=== PATIENT | female | born 1940 | race Caucasian/White ===

== ENCOUNTER 2016-12-08 21:42 | Inpatient (IN) | payer MEDICARE, BC ==
--- NOTE | ~2016-12-08 | HP ---
Unit #: [id number] #: [id number] Patient: CHAS KING [id number] [facility]. [place], [place] [address] [id number] I MR#: [id number] NAME: CHAS KING. ROOM: 466 Age: 76 Sex: F Admission Date: 12/09/2016 : 1940 Attending Physician: [place] Galeas M.D. Primary Care Physician: Riley Torres M.D. HISTORY AND PHYSICAL CHIEF COMPLAINT Pyelonephritis with nausea, back and right lower quadrant pain, failing outpatient antibiotics. HISTORY This pleasant 76-year-old female, who previously worked in Medical Records at [employer] with chronic atrial fibrillation, AODM, hypertension, is admitted for pyelonephritis. Apparently, the patient became ill two weeks ago with fever, back pain, right lower quadrant pain, chills, nausea, and dysuria. She was diagnosed with a urinary tract infection and completed antibiotics about five days ago. Over the past five to six days, has been experiencing increasing right lower quadrant discomfort, malaise, weakness, nausea, and black stool. She presents to this emergency department with stable vital signs, is in chronic atrial fibrillation. Is heme negative from below. Labs are notable for significant pyuria. In the ER, she was given morphine, Zofran, bolused with IV fluids, given Protonix and Rocephin. INR is 3.4. PAST MEDICAL HISTORY 1. CAD with previous cardiac catheterization 2006 revealing mild plaquing of the RCA and moderate dilation of the aortic root. Echo 09/2015 revealed an ejection fraction 50% to 55% with moderate left atrial enlargement, moderate severe MR, mild TR, moderate AF, moderate pulmonary artery hypertension. 2. Chronic atrial fibrillation for which the patient is anticoagulated. 3. Hypertension. 4. AODM for about 20 years. 5. Gout. 6. Hyperlipidemia. 7. Hypothyroidism. 8. History of congestive heart failure. 9. History of thrombocytopenia. 10. Chronic lower extremity edema. 11. Previous TIA. 12. BTL. 13. Cholecystectomy. 14. Cataract extraction. ALLERGIES Allergies to xanthines, penicillin, caffeine, lisinopril, codeine, erythromycin base. MEDICATIONS Unit #: [id number] #: [id number] Patient: CHAS KING Home medications include: 1. Lantus 50 units subcu q. h.s. 2. Omeprazole. 3. Synthroid 0.15 mg daily. 4. Lasix 40 mg b.i.d. 5. I see Cipro and Flagyl which patient may have completed recently. 6. Coumadin 5 mg daily. 7. Lipitor 40 mg daily. 8. Potassium 20 mEq daily. 9. Spironolactone 12.5 mg daily. 10. Cardizem XL 240 mg daily. 11. Lopressor 25 mg b.i.d. 12. Digoxin 0.125 mg daily. 13. NovoLog 20 units before breakfast and lunch. However, I noticed that when patient was discharged 12/[address] Dumont, her Lantus was 30 units in the morning, 14 units at bedtime with NovoLog 16 units subcu daily with meals. 14. The patient also, I believe, takes Aricept 5 mg daily. 15. Glucosamine. FAMILY HISTORY Negative for CAD. SOCIAL HISTORY The patient lives with her who is a stock broker supervisor and her son. She is a lifelong nonsmoker, does not drink alcohol. REVIEW OF SYSTEMS Notable for lower abdominal discomfort, black stool, back pain, recent fevers, malaise, dysuria, atrial fibrillation, minimal CAD, hypertension, diabetes, hyperlipidemia, hypothyroidism, valvular heart disease, possible TIA, above mentioned surgeries. All other systems were reviewed and are otherwise negative. PHYSICAL EXAMINATION GENERAL APPEARANCE: Pleasant, moderately obese 76-year-old female, currently in no acute distress. VITAL SIGNS: Temperature 97.7, pulse 93, respirations 14, blood pressure 146/90, O2 saturation is 98% on room air. HEENT: Eyes PERRLA. Extraocular muscles are intact. Pharynx is benign. NECK: Supple without adenopathy or thyromegaly. CHEST: Clear. CARDIAC: Normal S1 and S2. Irregular. The patient has a systolic murmur best heard at the right upper sternal border. ABDOMEN: Bowel sounds are present. Mild right lower quadrant tenderness without rebound or guarding. No hepatosplenomegaly or masses. EXTREMITIES: Notable for pedal edema bilaterally. Pedal pulses are diminished. No ulcers on the feet. NEUROLOGIC EXAM: The patient is awake, alert, oriented. Cranial nerves are intact. Equal strength throughout. RECTAL: Rectal examination per the ER physician - Hemoccult negative. DIAGNOSTIC STUDIES LABORATORY: Hematocrit is 41.8, normal white count and platelet count. SMA-12 - glucose 123. Normal lipase. Urinalysis - positive leukocyte esterase with 50-100 white cells. No Unit #: [id number] #: [id number] Patient: CHAS KING squamous cells. IMAGING: CT scan of the abdomen and pelvis - small hiatal hernia, diverticular disease, hemorrhagic cyst lower pole of the right kidney. CARDIOVASCULAR: On telemetry, the patient is in A-fib, rate controlled, around 82. ASSESSMENT 1. Pyelonephritis/nausea with back and right lower quadrant pain, failing outpatient antibiotics: I believe patient was recently taking Cipro and Flagyl per current records. She is allergic to penicillin. 2. Black stool: The patient is heme negative from below, has a normal hemoglobin. 3. Insulin dependent diabetes mellitus: The patient has been out of her Lantus, I believe for the past three days. 4. Chronic atrial fibrillation, on Coumadin with supratherapeutic INR. 5. Memory issues. 6. Hypothyroidism. 7. Minimal coronary artery disease with valvular heart disease and normal ejection fraction. 8. Chronic pedal edema. PLANS 1. Rocephin, gentle IV fluids tonight. 2. Hold Coumadin until INR decreases. 3. Supportive treatment. 4. Decrease insulin dose. 5. Check dig level. 6. Florastor. Dictated by Brooklyn Galeas M.D. AML/df TD: 12/09/2016 05:00 JOB #: [id number] HISTORY AND PHYSICAL Page 1 of 1 X Brooklyn Galeas MD HISTORY AND PHYSICAL
--- NOTE | ~2016-12-08 | EKG ---
PATIENT: CHAS KING UNIT #: [id number] Ventricular Rate: 80 BPM Atrial Rate: 78 BPM QRS Duration: 96 ms Q-T Interval: 420 ms QTC Calculation(Bezet): 484 ms Calculated R [place]: -14 degrees Calculated T [place]: 59 degrees Diagnosis Line: Atrial fibrillation with PVC's Diagnosis Line: Incomplete right bundle branch block Diagnosis Line: Anteroseptal infarct (cited on or before Diagnosis Line: 16-AUG-2011) Diagnosis Line: Nonspecific T wave abnormality Diagnosis Line: Abnormal ECG Diagnosis Line: When compared with ECG of 26-DEC-2015 08:42, Diagnosis Line: Incomplete right bundle branch block is now Diagnosis Line: Present Diagnosis Line: Confirmed by CHEY HANSEN MD ([id number]) on Diagnosis Line: 12/14/2016 2:07:10 PM INTERPRETING MD: CHON
--- NOTE | ~2016-12-08 | DS ---
Unit #: [id number] #: [id number] Patient: CHAS KING [id number] [place], [place] [address] [id number] I MR#: [id number] NAME: CHAS KING. ROOM: 558 Age: 76 Sex: F Admission Date: 12/08/2016 : 1940 Discharge Date: 12/12/2016 Attending Physician: Belinda Loera M.D. Primary Care Physician: Riley Torres M.D. DISCHARGE SUMMARY PRIMARY CARE PROVIDER Riley Torres M.D. PRINCIPAL DIAGNOSES 1. Two-second sinus pause. 2. Nonsustained ventricular tachycardia. 3. Acute gout flare of right great toe. 4. Diabetes mellitus type 2, insulin requiring with hyperglycemia. 5. Chronic kidney disease, stage 3 with baseline creatinine of approximately 1.3. 6. Chronic atrial fibrillation, rate controlled and maintained on mildly subtherapeutic Coumadin. 7. Bradycardia. 8. Dementia, mild. 9. Hypertension. 10. Hyperlipidemia. 11. Hypothyroidism. 12. Chronic venous stasis. 13. Obesity, morbid. 14. Hypomagnesemia. 15. Moderate to severe mitral regurgitation. 16. Moderate aortic stenosis. CONSULTANTS Dr. Crane, Cardiology. PROCEDURES 1. Chest x-ray on 12/10/2016, with cardiac enlargement and low lung volumes. 2. CT scan of abdomen and pelvis on 12/08/2016, with no acute findings. A small hemorrhagic or proteinaceous cyst in lower pole of right kidney is noted. CLINICAL HISTORY AND HOSPITAL COURSE Ms. King is a 76-year-old female, who presents to the emergency department with right flank pain and back pain. It was associated with malaise, weakness, nausea, and one episode of black stool, which was Hemoccult negative. In the emergency department, there were concerns that the patient had perhaps some mild pyelonephritis given she recently had a UTI and was treated with antibiotics as an outpatient. CT scan of the abdomen and pelvis however did not reveal any abnormal findings. The patient was subsequently admitted. Unit #: [id number] #: [id number] Patient: CHAS KING The patient is started on empiric antibiotics for questionable pyelonephritis; however, she had no complaints of nausea, vomiting, or right-sided back pain for me throughout hospitalization. She remained afebrile. Had a normal white blood cell count and urine culture was negative. Antibiotics were discontinued. The patient was maintained on telemetry due to her chronic atrial fibrillation. She was found to have a 2-second sinus pause on the first day of hospitalization and Cardiology was consulted. Medications were adjusted and she has had no further sinus pause; however, she did develop some significant bradycardia and for a short period required a dopamine drip. She has been placed back on beta-blockers due to her atrial fibrillation, but again no further sinus pauses. The patient however did develop nonsustained ventricular tachycardia and medications were again adjusted. She has had no further nonsustained ventricular tachycardia. She did have some mild hypomagnesemia. Plan at this point is to treat medically, but if the patient has any recurrent symptoms, may need cardiac cath. Today, the patient is complaining of pain in her right great toe and she appears to have an acute gout flare. I will treat with prednisone therapy. As an outpatient, uric acid level can be evaluated and allopurinol initiated if necessary. I anticipate discharge home later today. The have also informed the patient and her they have been unable to afford Lantus and she has not been taking her insulin. Here, I have tried her on NPH and sugars have been relatively well controlled, running in the 150s fasting, but not at goal. This is an improvement and it is affordable. I am going to change her to NPH and this can be followed up by Dr. Dumont, whom she sees as an outpatient and/or the patient's primary care provider. DISCHARGE CONDITION Stable. DISCHARGE STATUS Discharged to home. DISCHARGE MEDICATIONS Prednisone 20 mg tablets two tablets daily for two days and one tablet daily for two days and discontinue; Coumadin 5 mg p.o. daily on Thursday, , Thursday, Thursday, and 7.5 mg on Thursday, Thursday, Thursday; glucosamine 500 mg daily; metoprolol tartrate 25 mg b.i.d.; Aricept 5 mg daily; Lasix 40 mg b.i.d.; Lipitor 40 mg daily; Humulin N U-100 10 units subcutaneously every 12 hours; CoQ10 10 mg daily; vitamin B complex daily; levothyroxine 150 mcg p.o. daily; potassium chloride 20 mEq p.o. daily; Caltrate 600+ D one daily; Aldactone 12.5 mg daily. DISCHARGE INSTRUCTIONS The patient is instructed to follow heart healthy diet and diabetic diet. She will continue Accu-Cheks a.c. and h.s. at home. She can increase her activity as tolerated. FOLLOWUP The patient will follow up with Dr. Crane per his instructions. The patient will follow up with her primary care provider, Dr. Torres in Unit #: [id number] #: [id number] Patient: CHAS KING approximately 2 weeks, can recheck potassium at that time in addition to checking uric acid level. She will have followup INR at that time as well. Time spent on discharge 27 minutes. Dictated by... Belinda Loera M.D. RADHA/shanell TD: 12/13/2016 01:09 JOB #: [id number] DISCHARGE SUMMARY Page 1 of 1 X Belinda Loera MD X DISCHARGE SUMMARY
--- NOTE | ~2016-12-08 | BMI ---
[facility] Nutrition Therapy DATE: 12/09/16 Patient: CHAS KING Physician: MIGEL Address: [facility] [address] Room/Bed: [address] [place] [address], Zip: [place] [address] Admit Date: 12/09/16 Date of : 38 Height: 5 5 Weight: 254 115.6 HIGH BMI NOTE: DX: 76 y/o female admitted with pyelonephritis ANTHROPOMETRICS: Ht: 65", Wt: 115.6 kg, BMI: 42 (Stage III obese) DIET: Consistent carb INTERVENTION: + Healthy heart restriction, meds/fluids per MD RECOMMENDATIONS: Consider adding healthy heart restriction to current diet in order to promote a gradual weight loss towards a healthy BMI range. Respectfully, Erica Frye RD, LD [employer] and Nutrition[employer] Services [facility] cc: client file
--- NOTE | ~2016-12-08 | CO ---
Unit #: [id number] #: [id number] Patient: CHAS KING [id number] [place], [place] [address] [id number] I MR#: [id number] NAME: CHAS KING. ROOM: 558 Age: 76 Sex: F Admission Date: 12/08/2016 : 1940 Attending Physician: Belinda Loera M.D. Primary Care Physician: Riley Torres M.D. Consultation Date: 12/10/2016 CONSULTATION REPORT REASON FOR CONSULTATION Atrial fibrillation with slow ventricular rate and nonsustained ventricular tachycardia. HISTORY OF PRESENT ILLNESS This is a 76-year-old female who has a history of chronic atrial fibrillation, is on anticoagulation with Coumadin, hypertension, diabetic. She also has known valvular heart disease and pulmonary artery hypertension. She was admitted with complaints of nausea, back and right lower quadrant pain, failing outpatient antibiotics for treatment for pyelonephritis. The patient has been dealing with her symptoms for about two weeks. She has had fever, flank pain, right lower quadrant pain, chills, nausea and dysuria. She had been diagnosed with a urinary tract infection and completed antibiotics about five days ago. For the past five to six days, the patient has increased right lower quadrant discomfort, malaise, weakness, nausea and black stools. She was brought into the emergency room by her family. Her labs were noted for significant pyuria. Her blood pressure and heart rate were stable. Her rhythm was chronic atrial fibrillation which her rate was within normal range. She was heme negative for stool. Her hemoglobin was 12.8, hematocrit 36.0 and her WBCs are 8. The patient was started on IV antibiotics after urine culture sent. Also, she received some Zofran and IV morphine and Protonix. Cardiology was consulted today after patient was seen on the monitor to have a 2.1 second pause. The patient was asymptomatic with this. As mentioned, she denies any chest pain, pain in her neck, bilateral jaws, shoulders, arms or elbow. The patient is well known to Dr. Crane. He is his office patient. Cardiology has been asked to assist with evaluation and management. PAST MEDICAL HISTORY 1. Permanent atrial fibrillation. 2. 2006 had a cardiac cath which revealed LVEF of 50% with normal left main, left circumflex and LAD with mild plaquing to the RCA and moderate dilatation of the aortic root. 3. 09/2015 2D echo. LVEF of 50% to 55% with moderate left atrial enlargement, moderate to severe mitral regurgitation, mild tricuspid regurgitation, moderate aortic stenosis, moderate pulmonary artery hypertension with elevated RVSP 53 mmHg. 4. Hypertension. 5. Diabetes mellitus type 2. 6. Hyperlipidemia. 7. Hypothyroidism. 8. History of diastolic congestive heart failure. 9. Chronic kidney disease. Unit #: [id number] #: [id number] Patient: CHAS KING 10. History of thrombocytopenia, she sees hematology. 11. History of TIA. 12. Obesity. 13. Nonsmoker. 14. The patient has sleep apnea and uses a CPAP but sometimes is noncompliant as she has a history of asthma. PAST SURGICAL HISTORY 1. Tubal ligation. 2. Cholecystectomy. 3. Cataract extraction. HOME MEDICATIONS 1. Lantus 50 units subcu q. h.s. 2. Omeprazole 20 mg, one tablet p.o. daily. 3. Levothyroxine 150 mcg p.o. daily. 4. Lasix 40 mg p.o. twice daily. 5. Coumadin 5 mg p.o. on Thursday, Thursday and Thursday and takes 7.5 mg on alternating days. 6. Lipitor 40 mg p.o. daily. 7. K-Dur 20 mEq p.o. daily. 8. Aldactone 12.5 mg p.o. daily. 9. Diltiazem 240 mg, one tablet p.o. daily. 10. Metoprolol 25 mg p.o. twice daily. 11. Digoxin 0.125 mg p.o. daily. 12. Calcitrate 600 plus vitamin D, one tablet p.o. daily. 13. Co Q-10 10 mg p.o., one tablet daily. 14. B complex, one tablet p.o. daily. 15. Aricept 5 mg p.o. daily. 16. Glucosamine 500 mg p.o. daily. ALLERGIES Xanthines, penicillins, caffeine, lisinopril, codeine, erythromycin base. SOCIAL HISTORY The patient lives with her and her son. She has been a lifelong nonsmoker. No alcohol or illicit drug abuse. FAMILY HISTORY Negative for coronary artery disease. REVIEW OF SYSTEMS See details in HPI. PHYSICAL EXAMINATION GENERAL: On exam, Ms. King is a 76-year-old female in no acute respiratory distress. She is awake, alert and oriented. VITAL SIGNS: Blood pressure was 109/75, heart rate 92, respirations 18, temperature 98.7, O2 sats 95% on room air. NECK: Trachea midline. No thyromegaly or lymphadenopathy. Normal carotid upstrokes. No jugular venous distention. HEART: S1, S2. Irregular rate and rhythm. Systolic murmur over the aortic region, left sternal border. LUNGS: Diminished but clear. ABDOMEN: Obese, soft, nontender. EXTREMITIES: Pedal pulses are palpable. Trace of 1+ edema. NEUROLOGICAL: No focal weakness. Unit #: [id number] #: [id number] Patient: CHAS KING DIAGNOSTIC STUDIES LABORATORY: Glucose was 171, BUN 16, creatinine 1.4, eGFR 35.9, sodium 136, potassium 3.9, chloride 98, CO2 27, calcium 9.2, magnesium 1.6. Yesterday protime was 28.8 with an INR of 2.6. WBC 8.6, hemoglobin 12.1, hematocrit 36.6 and platelets of 164. Cardiac enzymes - CK total is 97, MB is 2.7, percentage of MB is 2.8, troponin 0.04, troponin 0.03, and 0.04. IMAGING: Chest x-ray shows moderate cardiac enlargement. No evidence of active disease. Low lung volumes. CT of abdomen and pelvis shows nothing acute. Small hiatal hernia. Diverticulosis with no diverticulitis. CARDIOVASCULAR: On admission, EKG showed atrial fibrillation with occasional premature ventricular complex. Inferior infarct with also atrioseptal Qs. Atrial fibrillation. Telemetry had a ventricular rate where there was some slowing of 2.1 second pause. However, that was after a PVC so it was a compensatory pause. The patient had an eight beat run of nonsustained ventricular tachycardia. IMPRESSION 1. Pyelonephritis with nausea and back and right lower quadrant pain. 2. Black stool but heme negative. 3. Chronic permanent atrial fibrillation with slowing ventricular rate. 4. Supratherapeutic INR. 5. Nonsustained ventricular tachycardia. 6. Hypomagnesia. 7. Hypertension. 8. Diabetes mellitus type 2. 9. Hypothyroidism. 10. Chronic kidney disease. 11. Obesity. 12. Dementia. 13. Left ventricular ejection fraction is 50% to 55% with moderate to severe mitral regurgitation, moderate aortic stenosis, moderate pulmonary artery hypertension. That was on a 2D echo 10/03/15. PLAN 1. Cardiology consult to assist with evaluation and management of the slowing of the ventricular response of the A-fib and also had an eight beat run of nonsustained ventricular tachycardia. 2. The patient's magnesium level is low at 1.6. That will be supplemented and will continue to monitor. Also, patient's metoprolol had been held for a few hours since late yesterday. She has had no further slowing of her ventricular rate so will start back on beta kristin at a lower dose and will initiate the dose today because of the nonsustained ventricular tachycardia. Will stop the Lanoxin and Cardizem and just keep the patient on her beta kristin. That should keep the heart rate controlled and the nonsustained ventricular tachycardia not causing any pauses. 3. The patient's Coumadin is on hold but will monitor her protime and INR. After reviewing examination, Dr. Crane hopes to be able to keep the patient on a beta kristin to keep the heart rate maintained for Unit #: [id number] #: [id number] Patient: CHAS KING treatment of her pulmonary hypertension and diastolic dysfunction. Will obtain a 24 hour Holter to evaluate her rhythm and for any slowing of the heart rate that would need adjustment of her cardiac medications. 4. Her urine culture is pending. 5. In view of her chronic kidney disease, would like to treat her conservatively at this point. I mentioned to the patient that if her nonsustained ventricular tachycardia continues or she has slowing of her heart rate such as bradycardia, she may need eventually a permanent pacemaker. It is noted that in the past the patient had been given amiodarone but was not well tolerated which she used to maintain normal sinus rhythm. Also, Dr. Crane discussed with the patient that she may need a repeat heart catheterization at a later date to evaluate her coronary artery disease since it has been since 2006 since she has had a heart catheterization. 6. On exam, there are no signs or symptoms of unstable angina. Her cardiac enzymes are negative. Her EKG does not show anything acute. 7. The patient's potassium and magnesium will be supplemented as needed. 8. The patient's CHADS score is a 3 and will need to be resumed on her anticoagulation. Yesterday, her INR is 2.6. Her INR is pending today. 9. Further recommendations pending per Dr. Crane. Thank you very much for allowing us to assist in her care. Dictated by... Montse Milian A.P.R.N. for Tara Freire/vinod TD: 12/12/2016 08:15 JOB #: [id number] CONSULTATION REPORT Page 1 of 1 X Montse Milian APRN X CONSULTATION REPORT
--- NOTE | ~2016-12-08 | CT4 ---
[facility] A Service of [facility] & [facility] RADIOLOGY TEXT RESULTS PATIENT: CHAS KING LOCATION: [facility] [id number] : 38 UNIT #: [id number] AGE: [address]: Belinda Loera MD SEX: F ORDER DR: [id number] [facility] [address] [place], [place] [address] [id number] I MR#: [id number] Acc #: [id number] NAME: CHAS KING. : 1940 SEX: F STUDY DATE/TIME: 12/08/2016 21:08 UNIT: [facility] ROOM: [facility] STUDY DESCRIPTION: CT Abd and Pelv Wo Cont Attending Physician: Belinda Loera M.D. Ordering Physician: Robel Jackson M.D. Primary Care Physician: Riley Torres M.D. MEDICAL IMAGING REPORT This report is preliminary unless electronic signature is present EXAM CT abdomen and pelvis without contrast HISTORY Abdomen pain and nausea for [address] exam was performed with one or more of the following radiation dose reduction techniques: automatic exposure control, adjustment of mA and/or kV according to patient size, and iterative reconstruction. FINDINGS CT abdomen and pelvis was performed without IV contrast and with oral contrast. CT abdomen: There is a small hiatal hernia. Moderate cardiac enlargement. The liver, spleen, pancreas, left kidney, and adrenal glands are unremarkable. Incidental rotational anomaly of the right kidney. 1 cm hyperdense mass in the lower pole right kidney is likely a hemorrhagic or proteinaceous cyst. There is also a 1.5 cm simple cyst in the anterior lower pole of the right kidney. No bowel dilatation. No ascites. Normal caliber abdominal aorta. No adenopathy. CT pelvis: No bowel dilatation. Mild sigmoid diverticulosis. No diverticulitis. The uterus and adnexa are unremarkable. Urinary bladder is unremarkable. IMPRESSION 1. No acute findings in the abdomen or pelvis. 2. Small hiatal hernia. 3. Mild sigmoid diverticulosis but no diverticulitis. 4. Probable incidental small hemorrhagic or proteinaceous cyst in the lower pole right kidney measuring close to 1 cm and adjacent incidental 1.5 cm simple cyst lower pole right kidney. [facility] A Service of [facility] & [facility] RADIOLOGY TEXT RESULTS PATIENT: CHAS KING LOCATION: [facility] [id number] : 38 UNIT #: [id number] AGE: [address]: Belinda Loera MD SEX: F ORDER DR: Dictated by... Emmanuel Marques M.D. THIS IS AN ELECTRONICALLY VERIFIED REPORT Emmanuel Marques M.D. at 12/09/2016 3:59 PM LAZARO/edson TD: 12/09/2016 08:43 JOB #: [id number] MEDICAL IMAGING REPORT Page 1 of 1 COPY
--- NOTE | ~2016-12-08 | CR63 ---
[facility] A Service of [facility] & [facility] RADIOLOGY TEXT RESULTS PATIENT: CHAS KING LOCATION: [facility] : 38 UNIT #: [id number] AGE: [address]: Belinda Lorea MD SEX: F ORDER DR: [id number] [facility] [address] [place], [place] [address] [id number] I MR#: [id number] Acc #: [id number] NAME: CHAS KING. : 1940 SEX: F STUDY DATE/TIME: 12/10/2016 14:01 UNIT: [facility] ROOM: [facility] STUDY DESCRIPTION: CR Chest 2 View Attending Physician: Belinda Loera M.D. Ordering Physician: Emery Crane M.D. Primary Care Physician: Riley Torres M.D. MEDICAL IMAGING REPORT This report is preliminary unless electronic signature is present EXAM PA and lateral chest 12/10/2016 HISTORY Shortness of air and cough for 1 week. FINDINGS 2 views of the chest demonstrate moderate cardiac enlargement. Pulmonary vascularity is normal. Relatively low lung volumes. No airspace infiltrates or effusions. Moderate hypertrophic spurring mid thoracic spine and [id number] mid-thoracic kyphosis. IMPRESSION 1. Moderate cardiac enlargement. 2. No evidence of active disease. 3. Relatively low lung volumes. Dictated by... Emmanuel Marques M.D. THIS IS AN ELECTRONICALLY VERIFIED REPORT Emmanuel Marques M.D. at 12/10/2016 11:25 PM LAZARO/flor TD: 12/10/2016 15:00 JOB #: [id number] MEDICAL IMAGING REPORT Page 1 of 1 COPY
--- NOTE | ~2016-12-08 | HM ---
Unit #: [id number] #: [id number] Patient: CHAS KING [id number] [address] [address] [id number] I MR#: [id number] NAME: CHAS KING. : 1940 SEX: F STUDY DATE/TIME: 12/10/2016 UNIT: [id number] ROOM: 558 STUDY DESCRIPTION: Attending Physician: Belinda Loera M.D. Primary Care Physician: Riley Torres M.D. CARDIOLOGY REPORT EXAM 24-hour Holter monitor. DATE APPLIED 12/10/2016 DATE SCANNED 12/19/[address] Emery Crane ORDERED BY Dr. Belinda Loera REASON FOR STUDY Atrial Fibillation. FINDINGS 1. Underlying rhythm is atrial fibrillation. Ventricular rate is controlled with an average heart rate of 90 per minute. Slowest recorded heart rate is 65 beats per minute. Maximal recorded heart rate is 170 beats per minute which lasts only for about 6 to 7 seconds at a time. 2. Frequent multifocal isolated premature ventricular contractions are noted. There were 188 premature ventricular couplets. 3. There were nine runs of ventricular tachycardia with the longest lasting four beats at a rate of 72 per minute. There is a three-beat run of ventricular tachycardia seen at a rate of 125 beats per minute at 4:43 p.m. Computer counted a ventricular tachycardia, rate of 190 per minute but it is not documented in print. 4. There is no significant bassem arrhythmia, no long RR intervals are noted with the longest RR interval of 0.96 seconds. IMPRESSION A 24-hour ambulatory monitoring is abnormal with: 1. Atrial fibrillation seen throughout the 24-hour duration. 2. Very frequent premature ventricular contractions, mostly isolated. 3. Nine runs of ventricular tachycardia consisting of three to four beats with the fastest recorded ventricular tachycardia rate of 125 beats per minute. 4. There is no significant slowing of the heart rate. Unit #: [id number] #: [id number] Patient: CHAS KING 5. The patient did not report any symptom or activity diary. Dictated by... Tara Freire TD: 12/21/2016 08:07 JOB #: [id number] CC: Belinda Loera M.D. CARDIOLOGY REPORT Page 1 of 1 X Emery Crane MD HOLTER MONITOR REPORT
[2016-12-08 20:08] LABS: URINE SOURCE CLEAN CATCH
[2016-12-08 20:22] LABS: CULTURE INDICATED? YES; U HYALINE CASTS AUWI 0-2 /[LPF]; URBCS1 AUWI 0-2 /[HPF] (0-2); URINE APPEARANCE CLEAR; URINE BACTERIA AUWI NEG (NEGATIVE); URINE BILIRUBIN NEG (NEG); URINE BLOOD NEG (NEG); URINE COLOR DK YELLOW; URINE GLUCOSE NEG (NEG); URINE KETONE NEG (NEG); URINE LEUKOCYTE ESTERASE 2+ (NEG); URINE NITRATE NEG (NEG); URINE PROTEIN 1+ (NEG); URINE SPECIFIC GRAVITY 1.012 (1.003-1.035); URINE SQUAMOUS EPITHELIAL CELL NONE SEEN /[HPF]; URINE UROBILINOGEN 0.2 MG/DL (NEG); UWBCS1 AUWI 50-100 (0-5)
[2016-12-08 20:24] LABS: BASOPHIL% 0.6 % (0-2.5); EOSINOPHIL# 0.2 X10e3 (0-0.7); HEMATOCRIT 41.8 % (35.0-45.0); HEMOGLOBIN 13.9 gm/dL (12.0-16.0); LYMPHOCYTE# 1.3 X10e3 (1.0-3.5); LYMPHOCYTE% 16.5 % (17.0-45.0); MEAN CELL VOLUME 87.8 FL (83-96); MEAN CORPUSCULAR HEMOGLOBIN 29.2 PG (28-34); MEAN CORPUSCULAR HGB CONC 33.2 g/dL (30-36); MEAN PLATELET VOLUME 7.9 FL (6.5-11.5); MONOCYTE# 0.9 X10e3 (0-1.0); MONOCYTE% 10.9 % (3.0-12.0); NEUTROPHIL# 5.5 X10e3 (1.5-7.1); PLATELET COUNT 188 X10e3 (140-420); RED BLOOD COUNT 4.77 X10e (3.90-5.30); RED CELL DISTRIBUTION WIDTH 15.8 % (11.0-15.5); WHITE BLOOD COUNT 7.9 X10e3 (4.0-10.5)
[2016-12-08 20:28] LABS: DIFF IND NO
[2016-12-08 20:42] LABS: INR 3.4; PARTIAL THROMBOPLASTIN TIME 35.5 SECONDS (23.5-31.3); PROTHROMBIN TIME (PATIENT) 37.7 SECONDS (9.6-11.5)
[2016-12-08 20:51] LABS: ALBUMIN SERUM 3.9 g/dL (3.5-5.0); BILIRUBIN, DIRECT 0.1 mg/dL (0.0-0.2); BILIRUBIN,INDIRECT 0.6 mg/dL (0.0-0.9); BILIRUBIN,TOTAL 0.7 mg/dL (0.2-2.0); BUN/CREATININE RATIO 11.53; CALCIUM SERUM 9.7 mg/dL (8.4-10.2); CREATININE SERUM 1.3 mg/dL (0.6-1.4); GLOM FILT RATE Estimated 39.3 mL/min (>60); POTASSIUM 4.6 mmol/L (3.5-5.1); PROTEIN TOTAL SERUM 7.8 g/dL (6.0-8.3)
[~2016-12-08 21:42] MED LIST: ACETAMINOPHEN PO; ADCIRCA20 MG PO; ALDACTONE PO; ALDACTONE25 MG PO; AMIODARONE PO; ANTIVERT PO; ARICEPT5 M1 PO; ARMOUR THYROID180 MG PO; ARMOUR THYROID60 M1 PO; ASPIRIN PO; ASPIRIN81 M1 PO; B COMPLEX1 CA1 PO; BACTRIM DS TABL1 TA1 PO; BYETTA10 MCG/0.0 INJ; CALTRATE 600 +1 EACH PO; CARDIZEM CD PO; CARDIZEM CD180 M1 PO; CARTIA XT180 M1 PO; CHROMIUM PIC1000 MCG PO; CO Q-10 100 MG1 EACH PO; CO Q-1010 MG PO; CORDARONE200 M1 PO; COUMADIN PO; COUMADIN2.5 MG PO; COUMADIN5 MG PO; COUMADIN7.5 MG PO; COZAAR25 MG PO; DIGOX0.125 MG PO; DILTIAZEM 24HR240 M2 PO; DIOVAN HCT 160-1 TAB PO; EXFORGE 5-320 M1 TAB PO; EXFORGE 5/160; FUROSEMIDE40 MG PO; GLUCOSAMINE500 M1 PO; HUMALOG100 U/M2 SUBQ; K-TAB ER20 MEQ PO; KCL PO; KEFLEX500 M1 PO; KLOR-CON PO; LANOXIN PO; LANOXIN125 MCG PO; LANTUS SOLOSTAR3 ML SUBQ; LANTUS100 U/ML SUBQ; LASIX PO; LASIX20 MG PO; LASIX80 MG PO; LEVOTHYROXINE150 MC1 PO; LEXAPRO PO; LIPITOR20 MG PO; LIPITOR40 MG PO; LOPRESSOR PO; LORTAB 10-5001 EACH PO; LORTAB 7.5-5001 TAB PO; METFORMIN HCL500 M1 PO; METFORMIN PO; METOPROLOL TAR100 MG PO; METOPROLOL TAR25 MG PO; MICRONASE5 M1 PO; MICRONASE5 M2 PO; NEURONTIN PO; NITROSTAT0.4 MG SL; NORCO 5/325 TAB1 TAB PO; NOVOLIN 70100 UNITS/ SUBQ; ONGLYZA2.5 MG PO; PACERONE PO; PACERONE100 MG PO; SYNTHROID PO; THYROID PO; TOPROL XL PO; XARELTO15 MG PO; [UNRECOGNIZED DRUG - OTHER]
[2016-12-09 05:14] LABS: BASOPHIL# 0.1 X10e3 (0-0.3); BASOPHIL% 0.7 % (0-2.5); EOSINOPHIL# 0.2 X10e3 (0-0.7); HEMATOCRIT 36.6 % (35.0-45.0); HEMOGLOBIN 12.1 gm/dL (12.0-16.0); LYMPHOCYTE# 1.4 X10e3 (1.0-3.5); LYMPHOCYTE% 16.4 % (17.0-45.0); MEAN CELL VOLUME 88.1 FL (83-96); MEAN CORPUSCULAR HEMOGLOBIN 29.2 PG (28-34); MEAN CORPUSCULAR HGB CONC 33.2 g/dL (30-36); MEAN PLATELET VOLUME 8.3 FL (6.5-11.5); MONOCYTE# 0.7 X10e3 (0-1.0); MONOCYTE% 8.5 % (3.0-12.0); NEUTROPHIL# 6.2 X10e3 (1.5-7.1); NEUTROPHIL% 72.4 % (40-75); PLATELET COUNT 164 X10e3 (140-420); RED BLOOD COUNT 4.16 X10e (3.90-5.30); WHITE BLOOD COUNT 8.6 X10e3 (4.0-10.5)
[2016-12-09 05:21] LABS: DIFF IND NO
[2016-12-09 05:26] LABS: INR 2.9; PROTHROMBIN TIME (PATIENT) 32.2 SECONDS (9.6-11.5)
[2016-12-09 06:11] LABS: CALCIUM SERUM 8.8 mg/dL (8.4-10.2); CREATININE SERUM 1.4 mg/dL (0.6-1.4); DIGOXIN (LANOXIN) 0.5 ng/ml (1.0-2.0); GLOM FILT RATE Estimated 35.9 mL/min (>60); POTASSIUM 4.1 mmol/L (3.5-5.1)
[2016-12-09 08:59] LABS: INR 2.6; PROTHROMBIN TIME (PATIENT) 28.8 SECONDS (9.6-11.5)
[2016-12-10 02:20] LABS: BUN/CREATININE RATIO 11.42; CALCIUM SERUM 9.2 mg/dL (8.4-10.2); CREATININE SERUM 1.4 mg/dL (0.6-1.4); GLOM FILT RATE Estimated 35.9 mL/min (>60); MAGNESIUM 1.6 mg/dL (1.6-3.0); POTASSIUM 3.9 mmol/L (3.5-5.1)
[2016-12-10 02:41] LABS: %MB 2.8 % (0.0-4.0); MB 2.7 ng/ml
[2016-12-10 08:57] LABS: %MB 2.7 % (0.0-4.0); MB 2.5 ng/ml
[2016-12-10 14:44] LABS: %MB 2.9 % (0.0-4.0); MB 2.8 ng/ml
[2016-12-11 05:47] LABS: INR 1.6; PROTHROMBIN TIME (PATIENT) 17.4 SECONDS (9.6-11.5)
[2016-12-11 06:24] LABS: BUN/CREATININE RATIO 14.28; CALCIUM SERUM 9.2 mg/dL (8.4-10.2); CREATININE SERUM 1.4 mg/dL (0.6-1.4); GLOM FILT RATE Estimated 35.9 mL/min (>60); MAGNESIUM 1.6 mg/dL (1.6-3.0); POTASSIUM 3.6 mmol/L (3.5-5.1)
[2016-12-12 08:03] LABS: INR 1.6
[2016-12-12 08:18] LABS: BUN/CREATININE RATIO 18.33; CALCIUM SERUM 8.6 mg/dL (8.4-10.2); CREATININE SERUM 1.2 mg/dL (0.6-1.4); GLOM FILT RATE Estimated 43.3 mL/min (>60); MAGNESIUM 1.8 mg/dL (1.6-3.0); POTASSIUM 3.7 mmol/L (3.5-5.1)
[2016-12-12] MEDS ORDERED: HUMULIN N100 UNITS/ SUBQ (17:19)
[2016-12-12] MEDS ORDERED: DELTASONE20 MG PO (17:22)
== END 2016-12-12 20:36 | disposition home or self-care (01) | DRG 690 ==
LOC: CED 21:42 → CEDOF 23:45 → C4C 12-09 00:42 → C5B 12-09 22:03
PROVIDERS: Emergency Medicine; Family Medicine; Internal Medicine; Internal Medicine Cardiovascular Disease; Nurse Practitioner
DX: N12 Tubulo-interstitial nephritis, not specified as acute or chronic (principal); I47.2 Ventricular tachycardia; Z68.41 Body mass index [BMI] 40.0-44.9, adult; E11.65 Type 2 diabetes mellitus with hyperglycemia; I13.0 Hypertensive heart and chronic kidney disease with heart failure and stage 1 through stage 4 chronic kidney disease, or unspecified chronic kidney disease; I50.32 Chronic diastolic (congestive) heart failure; I27.2 Other secondary pulmonary hypertension; F03.90 Unspecified dementia, unspecified severity, without behavioral disturbance, psychotic disturbance, mood disturbance, and anxiety; I48.2 Chronic atrial fibrillation; Z79.01 Long term (current) use of anticoagulants; Z79.4 Long term (current) use of insulin; N18.3 Chronic kidney disease, stage 3 (moderate); I25.10 Atherosclerotic heart disease of native coronary artery without angina pectoris; M10.071 Idiopathic gout, right ankle and foot; E78.5 Hyperlipidemia, unspecified; E03.9 Hypothyroidism, unspecified; Z86.73 Personal history of transient ischemic attack (TIA), and cerebral infarction without residual deficits; R41.3 Other amnesia; E66.01 Morbid (severe) obesity due to excess calories; E83.42 Hypomagnesemia; R00.1 Bradycardia, unspecified; I87.8 Other specified disorders of veins; I34.0 Nonrheumatic mitral (valve) insufficiency; I35.0 Nonrheumatic aortic (valve) stenosis; R60.0 Localized edema; Z90.49 Acquired absence of other specified parts of digestive tract; Z98.51 Tubal ligation status; Z98.49 Cataract extraction status, unspecified eye; Z88.5 Allergy status to narcotic agent; Z88.0 Allergy status to penicillin; Z88.8 Allergy status to other drugs, medicaments and biological substances
CPT/HCPCS: 36415; 71020; 74176; 80048; 80076; 80162; 81003; 82550; 82553; 82947; 83690; 83735; 84443; 84484; 85025; 85610; 85730; 87086; 93005; 93225; 93226; 96365; 96375; 97161; 97166; 97535; 99285; C9113; G8978-GP; G8979-GP; G8980-GP; G8987-GO; G8988-GO; J0696; J1265; J1650; J1815; J2270; J2405; J3475